=== PATIENT | female | born 1950 | race Caucasian/White ===

== ENCOUNTER 2020-11-22 09:19 | Outpatient (CLI) | payer MEDICARE, OTHER, SELFPAY ==
--- NOTE | ~2020-11-22 | MM_ITS ---
EXAMINATION: MM screening [facility] BI w michael HISTORY: Screening TECHNIQUE: Craniocaudal and mediolateral oblique 3-D tomosynthesis images were obtained and synthetic 2-D images were generated. CAD analysis was submitted and interpreted. COMPARISON: Comparison to multiple prior studies sequentially, with oldest reviewed study dated 03/03. BREAST PARENCHYMAL COMPOSITION: The breasts are heterogeneously dense, which may obscure small masses . FINDINGS: There is no evidence of suspicious mass, calcification, or architectural distortion to sugg est malignancy in either breast. There has been no suspicious interval change. IMPRESSION: 1. No mammographic evidence of malignancy. 2. Recommend routine screening mammography in one year. BI-RADS Category 1: Negative Reviewed, dictated and finalized at location A.
== END 2020-11-22 09:20 | disposition home or self-care (01) ==
LOC: ANHIMG 09:30
PROVIDERS: PCP Internal Medicine; Visit Provider Obstetrics & Gynecology
DX: Z12.31 Encounter for screening mammogram for malignant neoplasm of breast (principal)
CPT/HCPCS: 77063; 77067

== ENCOUNTER 2021-03-08 07:55 | Outpatient (RCR) | payer BC, MEDICARE, SELFPAY ==
--- NOTE | 2021-03-08 08:38 | PTOPEVAL ---
Thank you for referring Chandni Fox to [facility].? The patient is scheduled to be seen for therapy? ____x/week for ___ weeks. Please review, sign, date and return this plan of care PEMA. I agree with and certify that the following plan of care is medically necessary. Referring Physician Date Admitting Provider: Attending Provider: Marcelle Del Toro Referring Provider: PRETTY Outpatient Evaluation Start: 03/08/21 07:01 Freq: Status: Active Protocol: Document 03/08/21 07:00 [facility] (Rec: 03/08/21 08:37 [facility] [id number]) Evaluation Information Problem Diagnosis neck pain Onset 02/18/21 Additional Evaluation Detail ndi = 30% functionally declined quick dash = 40% functionally declined Subjective Information Patient reports neck and upper Query Text:As Reported By Patient/ back pain, R UE radicular Family symptoms, dizziness upon standing and bending over, ringing in L hear, and pain pain in R ear. Symptoms worsened since COVID diagnosis as dizziness increased and neck pain worsened. Takes tynenol PRN. Reports jaw pain, but no diagnosis given after seeing DDS. Seen 2 ENT's for ear and facial symptoms. Sees massage therapist weekly really helps a lot . Prior Level of Function Comments Additional Prior Level of Function wants to cross stitch without Comments pain and return to gardening without dizziness/neck pain former industrial workers for 38 years, retired 14 years ago Pain Assessment Timing of Pain Assessment Timing of Pain Assessment Assessment Pain Scale Pain Scale Used Numeric (1 - 10) Self Report Pain Assessment Right Neck Reported Pain Level 2 Lowest Pain Intensity 2 Greatest Pain Intensity 5 Pain Score Pain Score 2: Self Report Interventions Used Interventions Used By Clinicians Activity or ADL's,Education, Electrical Stimulation, Exercise,Heat Cervical and Lumbar ROM Cervical ROM Cervical Flexion (0-60) 45 Query Text:Active in Degrees Cervical Extension (0-70) 60 Query Text:Active in Degrees Cervical Lateral Flexion Right (0-50) 45 Query Text:Active in Degrees Cervic
--- NOTE | 2021-04-15 10:20 | PTOPEVAL ---
Thank you for referring Chandni Fox to [facility].? The patient is scheduled to be seen for therapy? __2__x/week for 4 visits. Please review, sign, date and return this plan of care PEMA. I agree with and certify that the following plan of care is medically necessary. Referring Physician Date Admitting Provider: Attending Provider: Marcelle Del Toro Referring Provider: *PT Outpatient Evaluation Start: 03/08/21 07:01 Freq: Status: Active Protocol: Document 04/15/21 08:45 [facility] (Rec: 04/15/21 10:17 [facility] [id number]) Therapy Assessment Status Assessment Status Assessment Status Progress Evaluation Information Problem Diagnosis neck pain Onset 02/18/21 Subjective Information Pt. reports that she felt very Query Text:As Reported By Patient/ good for 2-3 days after last Family Rx. She reports that fullness in the ears had subsided and the ringing also quit. Pt. reports symptoms returned over the weekend. She states that she notes some slight improvement with PT, but still has concern about the symptoms of fullness. Pain Assessment Timing of Pain Assessment Timing of Pain Assessment Pre-Treatment Pain Scale Pain Scale Used Numeric (1 - 10) Self Report Pain Assessment Right Neck Reported Pain Level 5 Pain Score Pain Score 5: Self Report Interventions Used Interventions Used By Clinicians Electrical Stimulation, Exercise,Heat,Manual Therapy Techniques Cervical and Lumbar ROM Cervical ROM Cervical Flexion (0-60) 55 Query Text:Active in Degrees Cervical Extension (0-70) 58 Query Text:Active in Degrees Cervical Lateral Flexion Right (0-50) 45 Query Text:Active in Degrees Cervical Lateral Flexion Left (0-50) 41 Query Text:Active in Degrees Cervical Rotation Right (0-90) 72 Query Text:Active in Degrees Cervical Rotation Left (0-90) 68 Query Text:Active in Degrees Upper Extremity Muscle Strength Testing General Upper Extremity Strength Gross Upper Extremity Strength Comments -bilateral shoulder flexion 4+ /5 -blateral shoulder ER 4+/5 -bilateral shoulder IR 5/5 -bilateral elbow flexion 4+/5 -bilateral elbow extension 4/5 General Exercise General Exercises Exercise Description -bilateral shoulder retraction Query Text:Record Sets, Reps,
== END 2021-05-07 09:42 | disposition home or self-care (01) ==
LOC: CHSPT 07:55
DX: M54.2 Cervicalgia (principal)
CPT/HCPCS: 97012; 97014; 97110; 97140; 97162; G0283

== ENCOUNTER 2022-01-07 08:52 | Outpatient (CLI) | payer MEDICARE, OTHER, SELFPAY ==
--- NOTE | ~2022-01-07 | MM_ITS ---
EXAMINATION: MM screening jamari BI w michael HISTORY: Screening mammogram TECHNIQUE: Craniocaudal and mediolateral oblique 3-D tomosynthesis images were obtained and synthetic 2-D images were generated. Bilateral rotated lateral craniocaudal views. CAD analysis was submitted and interpreted. COMPARISON: 11/22/2020, 06/22/2019, 06/18/2018 bilateral screening mammogram examinations BREAST PARENCHYMAL COMPOSITION: The breasts are heterogeneously dense, which may obscure small masses . FINDINGS: There is no evidence of suspicious mass, calcification, or architectural distortion to sugg est malignancy in either breast. There has been no suspicious interval change. IMPRESSION: 1. No mammographic evidence of malignancy. 2. Recommend routine screening mammography in one year. BI-RADS Category 1: Negative Reviewed, dictated and finalized at location A.
== END 2022-01-07 08:53 | disposition home or self-care (01) ==
PROVIDERS: Visit Provider Obstetrics & Gynecology
DX: Z12.31 Encounter for screening mammogram for malignant neoplasm of breast (principal)
CPT/HCPCS: 77063; 77067

== ENCOUNTER 2022-09-16 08:57 | Outpatient (RCR) | payer MEDICARE, OTHER, SELFPAY ==
--- NOTE | 2022-09-23 21:50 | BUPTOPEVAL1 ---
Assessment and note entered by JT File, PT Evaluation Information Assessment Status Evaluation Diagnosis cervical disc herniation, cervical spinal stenosis Onset 09/11/22 Subjective Information patient reports back in 2020 she got stuck climbing through a fence. she reports she began having pain in the R shoulder, but the ortho believes it is coming from her neck. she reports she began a new med for the pain in the R arm last week. she reports this has helped a bit. she reports she continues to have pain in the R elbow, R 1st 3 fingers, and pain up the R shoulder to the neck. she reports she also has pain in the R shoulder blade. she reports it is worse in the upper back/shoulder blade this morning. she reports last week she had pain in the base of the neck shooting up to the head with lifting the laudry basket. pain in the neck and R UE is increased with lifting. Reported Pain Level Pain Score 6,5: Self Report Assessment PT Clinical Summary mrs. wilcox presents to skilled PT services for evaluation and treatment of R cervical radiculopathy, RTC tendinopathy, and R lateral epicondylitis. she would benefit from continued skilled PT to address her objective/functional deficits and return to her prior level home and animal care activities. focus will begin with the cervical spine as this appears to be the most eggregious issue at hand. Plan of Care Interventions Electrical Stimulation,Hot Pack/Cold Pack,Manual Therapy,Mechanical Traction,Neuro Re-education, Patient/Caregiver Educati,Therapeutic Activities, Therapeutic Exercise PT Services Indicated Yes Treatment Frequency and 3x weekly for 12 visits Duration These treatments will address the objective and functional deficits as defined above. The patient will be advanced safely and appropriately in order for the patient to progress towards his/her prior level of function. Additional exercises will be introduced and as well as a comprehensive home exercise program upon discharge, if needed, ?to ensure carryover of functional gains achieved in the clinic. This treatment plan has been reviewed and agreement upon by the patient.
--- NOTE | 2022-10-09 10:09 | PTOPPROG ---
Assessment and note entered by JT File, PT Evaluation Information Assessment Status Progress Diagnosis cervical disc herniation, cervical spinal stenosis Onset 09/11/22 Subjective Information patient reports her pain in the neck and R shoulder blade are much decreased today. she reports she has been feeling good the past few visits with less pain and improved rom and reaching with the arms. Assessment PT Clinical Summary mrs. wilcox presents to skilled PT services for her 10th skilled PT. as of this date, her pain is decreased, her cervical rom is improved, and her functional IR reach with the R UE is improved. she is progressing towards goals, but has only met her goal for HEP performance thus far. she would do well to continue skilled PT to continue to work on pain reduction, rom, strength, and progression towards all goals. Plan of Care Interventions Electrical Stimulation,Hot Pack/Cold Pack,Manual Therapy,Mechanical Traction,Neuro Re-education, Patient/Caregiver Educati,Therapeutic Activities, Therapeutic Exercise PT Services Indicated Yes Treatment Frequency and continue skilled PT 2x weekly for 2 more visits Duration These treatments will address the objective and functional deficits as defined above. The patient will be advanced safely and appropriately in order for the patient to progress towards his/her prior level of function. Additional exercises will be introduced and as well as a comprehensive home exercise program upon discharge, if needed, ?to ensure carryover of functional gains achieved in the clinic. This treatment plan has been reviewed and agreement upon by the patient.
--- NOTE | 2022-10-22 21:45 | BUPTOPEVAL1 ---
Assessment and note entered by JT File, PT Evaluation Information Assessment Status Discharge Diagnosis cervical disc herniation, cervical spinal stenosis Onset 09/11/22 Subjective Information patient reports she was in the ER last night with severe pain in the neck, R shoulder, and R UE. she reports she is a bit better today, but last night her pain was a 10/10. she reports she was given meds and and evaluated via CT, but ultimately sent home with medications and instructions to follow up with her MD. in addition to her pain, patient continues to report facial nerve symptoms on the R side only stemming from her ear out to her eye/ cheek. Assessment PT Clinical Summary mrs. wilcox presents to skilled PT 1 day s/p ER admission for several flare up of shoulder, arm, neck, and scapular pain. for the past few visits leading up to this ER visit she was beginning to progress with therapy noting less pain and increased tolerated for exercises/activities. however, due to this new flare up of pain and lack of achievement of goals set forth in skilled PT, patient has been advised to DC therapy at this time and follow up with MD/schedule consultation with a cervical spine doctor. she has met only goals for HEP performance. Plan of Care Interventions Electrical Stimulation,Hot Pack/Cold Pack,Manual Therapy,Mechanical Traction,Neuro Re-education, Patient/Caregiver Educati,Therapeutic Activities, Therapeutic Exercise PT Services Indicated Yes Treatment Frequency and DC to HEP and follow up with MD/consultation with Duration cervical research support specialist. These treatments will address the objective and functional deficits as defined above. The patient will be advanced safely and appropriately in order for the patient to progress towards his/her prior level of function. Additional exercises will be introduced and as well as a comprehensive home exercise program upon discharge, if needed, ?to ensure carryover of functional gains achieved in the clinic. This treatment plan has been reviewed and agreement upon by the patient.
== END 2022-10-17 09:58 | disposition home or self-care (01) ==
LOC: CHSPT 08:57
PROVIDERS: Visit Provider Physician Assistant
DX: M50.20 Other cervical disc displacement, unspecified cervical region (principal); M48.02 Spinal stenosis, cervical region
CPT/HCPCS: 97014; 97110; 97140; 97161; G0283

== ENCOUNTER 2022-12-18 10:00 | Outpatient (CLI) | payer MEDICARE, SELFPAY ==
--- NOTE | 2022-12-18 11:00 | NEURO_ITS ---
Impression: Patient reports a history of right arm pain. # Mild, right Carpal Tunnel Syndrome. # Normal needle/EMG exam. # Clinical correlation recommended. Nerve Conduction Studies Anti Sensory Summary Table Stim Site NR Peak (ms) P-T Amp (?V) Site1 Site2 Delta-P (ms) Dist (cm) Larry (m/s) Right Median Anti Sensory (2-3nd Digit) Wrist 3.8 28.6 Wrist 2-3nd Digit 3.8 14.0 37 Wrist 4.1 29.2 Wrist 2-3nd Digit 3.8 14.0 37 Right Radial Anti Sensory (Base 1st Digit) Wrist 2.5 25.3 Wrist Base 1st Digit 2.5 0.0 Right Ulnar Anti Sensory (5th Digit) Wrist 3.3 26.9 Wrist 5th Digit 3.3 14.0 42 Motor Summary Table Stim Site NR Onset (ms) O-P Amp (mV) Site1 Site2 Delta-0 (ms) Dist (cm) Larry (m/s) Right Median Motor (Abd Poll Brev) Wrist 3.5 6.7 Elbow Wrist 4.4 25.0 57 Elbow 7.9 3.4 Right Ulnar Motor (Abd Dig Minimi) Wrist 3.2 6.3 A Elbow Wrist 5.0 27.0 54 A Elbow 8.2 5.1 B Elbow Wrist 3.8 19.0 50 B Elbow 7.0 5.2 F Wave Studies NR F-Lat (ms) L-R F-Lat (ms) Right Median (Mrkrs) (Abd Poll Brev) 28.53 Right Ulnar (Mrkrs) (Abd Dig Min) 29.01 EMG Side Muscle Nerve Root Ins Act Fibs Amp Dur Recrt Comment Right 1stDorInt Ulnar C8-T1 Nml Nml Nml Nml Nml Right Ext Indicis Radial (Post Int) C7-8 Nml Nml Nml Nml Nml Right Ext Digitorum Radial (Post Int) C7-8 Nml Nml Nml Nml Nml Right BrachioRad Radial C5-6 Nml Nml Nml Nml Nml Right PronatorTeres Median C6-7 Nml Nml Nml Nml Nml Right Abd Poll Brev Median C8-T1 Nml Nml Nml Nml Nml MTDD
== END 2022-12-18 10:01 | disposition home or self-care (01) ==
LOC: ANHNEURO 10:01
PROVIDERS: PCP Physician Assistant; Visit Provider Nurse Practitioner Adult Health
DX: G56.01 Carpal tunnel syndrome, right upper limb (principal)
CPT/HCPCS: 95886; 95909

== ENCOUNTER 2023-03-13 09:50 | Outpatient (CLI) | payer MEDICARE, SELFPAY ==
--- NOTE | ~2023-03-13 | MM_ITS ---
EXAMINATION: MM screening [facility] BI w michael HISTORY: Screening mammogram TECHNIQUE: Craniocaudal and mediolateral oblique 3-D tomosynthesis images were obtained and synthetic 2-D images were generated. CAD analysis was submitted and interpreted. COMPARISON: 01/07/2022, 11/22/2020, 06/22/2019 BREAST PARENCHYMAL COMPOSITION: The breasts are heterogeneously dense, which may obscure small masses . FINDINGS: No suspicious mass, calcification, or architectural distortion are identified in either balwinder ast to suggest malignancy. There has been no suspicious interval change. IMPRESSION: 1. No mammographic evidence of malignancy. 2. Recommend routine screening mammography in one year. BI-RADS Category 1: Negative Reviewed, dictated and finalized at location A.
== END 2023-03-13 09:51 | disposition home or self-care (01) ==
LOC: ANHIMG 09:57
PROVIDERS: PCP Physician Assistant; Visit Provider Obstetrics & Gynecology
DX: Z12.31 Encounter for screening mammogram for malignant neoplasm of breast (principal)
CPT/HCPCS: 77063; 77067

== ENCOUNTER 2024-05-26 09:42 | Outpatient (CLI) | payer MEDICARE, SELFPAY ==
--- NOTE | ~2024-05-26 | MM_ITS ---
EXAMINATION: MM screening [facility] BI w michael HISTORY: Screening mammogram TECHNIQUE: Craniocaudal and mediolateral oblique 3-D tomosynthesis images were obtained and synthetic 2-D images were generated. CAD analysis was submitted and interpreted. COMPARISON: 03/13/2023, 01/07/2022, 11/22/2020, 06/22/2019 BREAST PARENCHYMAL COMPOSITION:Dense: The breasts are heterogeneously dense, which may obscure small masses. FINDINGS: No suspicious mass, calcification, or architectural distortion are identified in either balwinder ast to suggest malignancy. There has been no suspicious interval change. IMPRESSION: No mammographic evidence of malignancy. Recommend routine screening mammography in one year. BI-RADS Category 1: Negative Reviewed, dictated and finalized at location .
== END 2024-05-26 09:43 | disposition home or self-care (01) ==
LOC: ANHIMG 09:43
PROVIDERS: PCP Physician Assistant; Visit Provider Obstetrics & Gynecology
DX: Z12.31 Encounter for screening mammogram for malignant neoplasm of breast (principal)
CPT/HCPCS: 77063; 77067

== ENCOUNTER 2025-08-25 15:02 | Outpatient (CLI) | payer MEDICARE, SELFPAY ==
--- NOTE | ~2025-08-25 | MM_ITS ---
EXAMINATION: MM screening jamari BI w michael HISTORY: Screening TECHNIQUE: Craniocaudal and mediolateral oblique 3-D tomosynthesis images were obtained and synthetic 2-D images were generated. CAD analysis was submitted and interpreted. COMPARISON: Comparison to multiple prior studies sequentially, with oldest reviewed study dated , 06/18/2018 BREAST PARENCHYMAL COMPOSITION: Dense: The breasts are heterogeneously dense, which may obscure small masses. FINDINGS: There is no evidence of suspicious mass, calcification, or architectural distortion to suggest malignancy in either breast. IMPRESSION: 1. No mammographic evidence of malignancy. 2. Recommend routine screening mammography in one year. BI-RADS Category 1: Negative Reviewed, dictated and finalized at location A. IGN EXCHANGE CLERK
--- OUTSIDE RECORDS SUMMARY | 2025-08-25 15:07 | XMS_ITS | Clinical Summary ---
Author Organization [facility] Address [address] [place] [address] Care Team Providers Care Firer Automatic Stoker Name Role Phone Tony Stark MD, Tee Salazar Primary Care Provi precious Unavailable Source Comments [facility],non-owned Affiliates and Associated Physician Practices is amultiple site organization consisting of ambulatory clinics and hospital sitesin [place], [place], [place] and [place]. This disclosure is being madepursuant to the Care Everywhere program and may not contain all information available regarding this patient. Last updated 18.[facility] Allergies No known active allergies Medications * Be aware that medications may not be up to date on this document. Alwaysverify current medications with the patient. ascorbic acid (VITAMIN C) 500 MG tablet Take 1 tablet by mouth once daily Active cyanocobalamin (VITAMIN B-12) 100 MCG tablet Activ e Probiotic Product (PROBIOTIC-10 PO) Active cholecalciferol (D--RIKKI) 10 MCG (400 UNITS)/ML solution Take 1 tablet by mouth once daily Active HYDROcodone-dimitri taminophen (NORCO) 5-325 MG tablet Take 1 tablet by mouth 07/03/2021 Active ondansetron, disintegrating, (ZOFRAN ODT) 4 MG tablet Take 4 mg by mouth 07/03/2021 Active Chlorpheniramin e-Phenylephrine 4-10 MG 04/29/2021 Active nitrofurantoin monohyd macro crystals (MACROBID) 100 MG capsule TAKE ONE CAPSULE BY MOUTH TWICE DAILY FOR 5 DAYS 02/06/2021 Active cyclobenzaprine (FLEXERIL) 5 MG tablet TAKE 1 TABLET BY MOUTH THREE TIMES DAILY FOR 5 DAYS 04/28/2021 Active meloxicam (Mobic) 15 MG tablet Take 1 (one) tablet by mouth once daily 30 tablet 5 11/08/2024 Active Hospital, Clinic, or Other Facility Administered Medication Ordered Dose Route Frequency Start Date End Date Status triamcinolone acetonide (Kenalog-40) injection 20 mgIndications:Arthritis of carpometacarpal (CMC) joint of right thumb 20 mg IX ONCE 08/23/2025 08/24/2025 Ended lidocaine PF (Xylocaine MPF) 1 % injection 0.5 mLIndications:Arthritis of carpometacarpal (CMC) joint of right thumb 0.5 mL IX ONCE 08/23/2025 08/24/2025 Ended triamcinolone acetonide (Kenalog-40) injection 40 mgIndications:Carpal tunnel syndrome of right wrist 40 mg IX ONCE 08/23/2025 08/24/2025 E nded lidocaine PF (Xylocaine MPF) 1 % injection 1 mLIndications:Carpal tunnel syndrome of right wrist 1 mL IX ONCE 08/23/2025 08/24/2025 E nded Active Problems Problem Noted Date Diagnosed Date Scapulothoracic bursitis of right shoulder 02/13 Cervical radiculopathy 07/04/2021 Traumatic incomplete tear of right rotator cuff 07/04/2021 Encounters Date Type Department Care Team Description 08/23/2025 9:30 AM TRANSFER TABLE OPERATOR Office Visit [facility] [address] [place] [address], [address] [address] Evan Joseph MD Carpal tunnel syndrome of right wrist (Primary Dx); Arthritis of carpometacarpal (CMC) joint of right thumb; Lateral epicondylitis of right elbow from Last 3 Months Social History Tobacco Use Types Packs/Day Years Used Date Smoking Tobacco: Never Smokeless Tobacco: Never Tobacco Cessation:Counseling Given: Not Answered Alcohol Use Standard Drinks/Week Comments Yes 0 (1 standard drink = 0.6 oz pur e alcohol) PHQ-2 Answer Date Recorded Patient Health Questionnaire-2 Score 0 08/16/2025 Comments Unknown Sex and Gender Information Value Date Recorded Sex Assigned at Not on file Legal Sex Female 4:10 PM CDT Gender Identity Not on file Sexual Orientation Not on file Plan of Treatment Upcoming Encounters Date Type Department Care Team (Late st Contact Info) Description 09/21/2025 11:40 AM TRANSFER TABLE OPERATOR Office Visit [facility] [address] [facility], [address] [address] Flaco Rodrigues PA-C [id number] [address] Health Maintenance Due Date Last Done Comments BONE DENSITY TESTING 1950 COLOGUARD (AGES 45-75) - COL ON CA SCREENING 1950 COLON MONITORING 1950 COLONOSCOPY - COLON CA SCREENING 1950 CT COLONOGRAPHY - COLON CA SCREENING 1950 Colorectal Cancer Screening 1950 FIT - COLON CA SCREENING 1950 FLEX SIG - COLON CA SCREENING 1950 MAMMOGRAM 1950 MEDICARE AWV 12 MONTHS 1950 HEPATITIS C SCREENING 11/04/1968 DTAP/TDAP/TD VACCINES (1 - Tdap) 1969 PNEUMOCOCCAL VACCINE 50+ (1 of 1 - PCV) 2000 ZOSTER VACCINE (1 of 2) 2000 COVID-19 VACCINE (1 - 2024-2 6 season) 2025 INFLUENZA VACCINE (#1) 2025 0, 06/27/2018, 06/25/2016 Respiratory Syncytial Virus (RSV) Vaccine Pt: or over 60 yrs (1 - 1-dose 75+ series) 2025 LIPID TESTING 05/05/2030 05/05/2025 DEPRESSION SCREENING Completed 09/22/2024, 08/11/2024 HEPATITIS B VACCINE Aged Out No longe r eligible based on patient's age to complete this topic HIB VACCINE Aged Out No longer eligi ble based on patient's age to complete this topic HPV VACCINE Aged Out No longer eligi ble based on patient's age to complete this topic MENINGOCOCCAL (Group B) VACCINE SHARED DECISION-MAKING Aged Out No longer eligible based on patient's age to complete this topic MENINGOCOCCAL GROUPS A/C/Y/W VACCINE Aged Out No longer eligible b ased on patient's age to complete this topic Insurance [facility] Address: [address] [place] [address] [employer] [facility] MEDICARE [facility] [place] [id number] Care Teams Firer Automatic Stoker Relationship Specialty Start Date End Date Tee Jimenez Jr., MD PCP - General 03/09/18
--- OUTSIDE RECORDS SUMMARY | 2025-08-25 15:07 | XMS_ITS | Clinical Summary ---
Author Organization [facility] Care Team Providers Care Ecotherapist Name Role Phone Channing Evans MD Unavailable [phone] Sudhakar Piña MD Unavailable [phone] Marcelle Del Toro PAC Primary Care Pro vider Edilberto Kaplan MD Unavailable [phone] Allergies No known active allergies Medications Cholecalciferol (VITAMIN D-3 PO) Take 1 Tab by mouth daily. Active Ascorbic Acid (VITAMIN C PO) Take 1 Tab by mouth daily. Active Cyanocobalamin (Vitamin B12) 1000 MCG Tablet Controlled Release 10/29/2022 Active diphenhydrAMINE (Benadryl Allergy) 25 MG CapsuleIndicatio ns:Irritant contact dermatitis, unspecified trigger Take 1 Capsule by mouth every 6 hours as needed for Itching. 100 Capsule 01/18/2024 Active Acetaminophen (TYLENOL ARTHRITIS PAIN PO) Take 1 Tablet by mouth daily as needed. Active Fiber, Kiel Dextrin, Powder Take by mouth daily. Active cetirizine (ZyrTEC) 5 MG Tablet Take 5 mg by mouth daily. 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 11/12/2016 Overview (11/05/2016): November 2016 Immunizations Immunization Administration Dates Next Due Influenza Vaccine greater than 3 yrs 11/11/2019, 06/27/2018,06/25/2016 PUR PCV-13 10/29/2016 Pneumococcal Vaccine Adult - 23 Valent 9 Family History Medical History Relation Name Comments Diabetes Brother Diabetes Father type 2 Dementia Mother Hypertension Mother Uterine Cancer Sister Relation Name Status Comments Brother Alive Father Mother Sister Social History Tobacco Use Types Packs/Day Years Used Date Smoking Tobacco: Never Smokeless Tobacco: Never Tobacco Cessation:Counseling Given: Not Answered Alcohol Use Standard Drinks/Week Comments Yes 1 (1 standard drink = 0.6 oz pur e alcohol) SOCIALLY [employer] [employer] Answer Date Recorded In the past 12 months has [employer] electric, gas, oil, or water [employer] threatened to shut off services in your home? No 11/02/2024 Social Connection and Isolation Panel Answer Date Recorded In a typical week, how many times do you talk on the phone with family, friends, or neighbors? More than three times a week 11/02/2024 How often do you get togethe r with friends or relatives? Once a week 11/02/2024 How often do you attend chur or sikhism services? 1 to 4 times per year 11/02/2024 Do you belong to any clubs o r organizations such as jehovah's witness groups, unions, fraternal or athletic groups, or school groups? No 11/02/2024 How often do you attend meet ings of the clubs or organizations you belong to? Never 11/02/2024 Are you , , di vorced, , never , or living with a partner? 11/02/2024 AUDIT-C Answer Date Recorded Q1: How often do you have a drink containing alc ohol? 2-4 times a month 11/02/2024 Q2: How many drinks containi ng alcohol do you have on a typical day when you are drinking? 1 or 2 11/02/2024 Q3: How often do you have si x or more drinks on one occasion? Never 11/02/2024 Overall Financial Resource Strain (CARDIA) Answe r Date Recorded How hard is it for you to pa y for the very basics like food, housing, medical care, and heating? Not hard at all 11/02/2024 PHQ-2 Answer Date Recorded Total Score - Questions 1-9 0 10/09 [facility] [place] of Occupat ional Health - Occupational Stress Questionnaire Answer Date Recorded Do you feel stress - tense, restless, nervous, or anxious, or unable to sleep at night because your mind is troubled all the time - these days? Not at all 11/02/2024 Exercise Vital Sign Answer Date Recorde d On average, how many days pe r week do you engage in moderate to strenuous exercise (like a brisk walk)? 7 days 11/02/2024 On average, how many minutes do you engage in exercise at this level? 40 min 11/02/2024 Hunger Vital Sign Answer Date Recorded Within the past 12 months, y ou worried that your food would run out before you got the money to buy more. Never true 11/02/19 25 Within the past 12 months, t he food you bought just didn't last and you didn't have money to get more. Never true 11/02/2024 PRAPARE - Transportation Answer Date Re corded In the past 12 months, has l ack of transportation kept you from medical appointments or from getting medications? No 10/09 In the past 12 months, has l ack of transportation kept you from meetings, work, or from getting things needed for daily living? No 11/02/2024 Housing Stability Vital Sign Answer Heath e Recorded In the last 12 months, was t here a time when you were not able to pay the mortgage or rent on time? No 01/06/2024 Number of Places Lived in the Last Year Not on f ile 01/06/2024 In the last 12 months, was t here a time when you did not have a steady place to sleep or slept in a mcfp (including now)? No 01/06/2024 Housing Stability Vital Sign Answer Heath e Recorded In the last 12 months, was t here a time when you were not able to pay the mortgage or rent on time? No 11/02/2024 In the past 12 months, how m any times have you moved where you were living? 0 11/02/2024 At any time in the past 12 m [facility], were you homeless or living in a mcfp (including now)? No 11/02/2024 Education Answer Date Recorded What is the highest level of school you have completed or the highest degree you have received? 12th grade 10/29/2020 Sexually Active Control Partners Comments Yes Male Comments No Sex and Gender Information Value Date Recorded Sex Assigned at Not on file Legal Sex Female 10:58 PM CDT Gender Identity Not on file Sexual Orientation Not on file Last Filed Vital Signs Vital Sign Reading Time Taken Comments Blood Pressure 128/68 05/05/2025 8:09 AM CDT Pulse 65 05/05/2025 8:09 AM CDT Temperature 36.5 C (97.7 F) 05/05/2025 8:09 AM CDT Respiratory Rate 12 05/05/2025 8:09 AM CDT Oxygen Saturation 94% 05/05/2025 8:09 AM CDT Inhaled Oxygen Concentration - - Weight 55.3 kg (122 lb) 05/05/2025 8:09 AM CDT Height 167.6 cm (5' 6) 07/05/2024 3:00 PM CDT Body Mass Index 19.69 07/05/2024 3:00 PM CDT Plan of Treatment Upcoming Encounters Date Type Department Care Team (Late st Contact Info) Description 11/06/2025 8:30 AM GUIDE DOMESTIC TOUR Office Visit [facility] [place] [address] [place] [phone] Marcelle Del Toro PAC [address] [place] [address] Health Maintenance Due Date Last Done Comments Cologuard 11/10/1995 Immunochemical Fecal Occult Blood 11/10/1995 Medicare Initial AWV [id number] 11/05/2016 Influenza Immunization (#1) 2025 03/0 02/2020, 06/27/2018, 06/25/2016 Mammogram 05/26/2025 05/26/2024, 07/0 03/2023, 11/22/2020, Additional history exists Discussion re Stopping Mammograms 2025 Respiratory Syncytial Virus (RSV) Immunization (Adult) (1 - 1-dose 75+ series) 2025 Colonoscopy 07/19/2029 07/19/2024, 07/08, 12/07/2018, Additional history exists Colorectal Cancer Screening 07/19/2029 DEXA Bone Density Discontinued 10/12/2015, 10/12/2015 Pneumococcal Immunization (50+ years) Completed 10/29/2018, 10/29/2016 Pneumococcal Immunization Combined Discontinued 10/29/2018, 10/29/2016 Hepatitis C Virus (HCV) Screening Completed 05/05/2025 Hepatitis B Immunization Aged Out No longer eligible based on patient's age to complete this topic Human Papillomavirus (HPV) Immunization (No Doses Required) Completed Meningococcal Immunization (ACWY) Aged Out No longer eligible based on patient's age to complete this topic Rotavirus Immunization Aged Out No lo nger eligible based on patient's age to complete this topic SARS-COV-2 Immunization Discontinued TdaP Immunization Discontinued Zoster Immunization Discontinued Procedures Procedure Name Priority Date/Time Associated Diagnosis Comments HEPATITIS C ANTIBODY Routine 05/05/2025 8:49 AM CDT Need for hepatitis C screening test GI IMAGING - COLONOSCOPY Routine 07/19/2024 8:27 AM GUIDE DOMESTIC TOUR MAMMOGRAM BILATERAL GENERIC 05/26/2024 12:00 AM CDT [facility] BONE DENSITOMETRY AXIAL SKELETON Routine 10/12/2015 from Last 3 Months or Most Recently Relevant to Health Maintenance Results * HEPATITIS C ANTIBODY (05/05/2025 8:49 AM CDT) hepatitis C antibody 0.06 <1 S/CO 05/05/2025 10:17 PM CDT [facility] Comment: Signal/Cutoff ratio < 0.79 is Nondetected Signal/Cutoff ratio 0.80-0.99 is Grayzone Signal/Cutoff ratio > 0.99 is Detected Supplemental assays are recommended if signal/cutoff ratio is >/=1.00. Signal/cutoff ratio result >/= 5.00 is 97% predictive of positivity for recombinant immunoblot assay (RIBA) and will be reported to the [place] Department of Public [facility] as required. Blood Venipuncture / Unknown 05/05/2025 8:49 AM CDT 05/05/2025 8:49 AM CDT Marcelle Del Toro PAC CHEMISTRY ORDERAB LES Final Result [facility] [address] [place] [address], [place] * GI IMAGING - COLONOSCOPY (07/19/2024 8:27 AM GUIDE DOMESTIC TOUR) Alejandro Caro MD IMG DIAGNOSTIC ORDERABLES Final Result * MAMMOGRAM BILATERAL MISCELLANEOUS (05/26/2024 12:00 AM CDT) 05/26/2024 Provider Scan IMG MAMMO ORDERABLES Final Resul t Performing Organization Address City/[facility]/ZIP Co de Phone Number SCAN * FAYE BONE DENSITOMETRY AXIAL SKELETON (10/12/2015) Anatomical Region Laterality Modality BODY N/A Other Tee Jimenez Jr., MD IMG DEXA ORDERABLES Final Result from Last 3 Months or Most Recently Relevant to Health Maintenance Insurance MEDICARE [facility] [place] [id number] Advance Directives Documents on File Type Date Recorded Patient Lean Manager Expl anation Power of Evs Tech for Health Care 12/07/2018 12:20 PM POA-HC Care Teams Ecotherapist Relationship Specialty Start Date End Date Marcelle Del Toro PAC [address] [place] [address] PCP - General Physician Embroidery Finisher 02/27/21 Channing Evans MD [address] [facility] [address] [place] [address] Consulting Physician Obstetrics & Gynecology 10/29/16 Sudhakar Piña MD [address] [place] [address] Consulting Physician Otolaryngology 02/11/21 Edilberto Kaplan MD [address] [facility] [address] [place] [phone] Consulting Physician General Surgery 11/17/23
--- OUTSIDE RECORDS SUMMARY | 2025-08-25 15:07 | XMS_ITS | Clinical Summary ---
Author Organization [facility] Address [address] [place] [address] Care Team Providers Care Data Analyst Report Writer Name Role Phone Marcelle Del Toro Primary Care Prov ider Allergies No known active allergies Medications ascorbic acid (vitamin C) 1,000 mg tablet 1,000 mg. 0 0 7 Active estrogens, conjugated,-medr oxyPROGESTERone (PREMPRO) 0.625-5 mg per tablet take 1 tablet by oral route every day 0 0 7 Active Additional Information Patient not taking.Reported on 07/24/2022 Lactobacillus acidophilus (PROBIOTIC) 10 billion cell capsule 0 0 7 Active Additional Information Patient not taking.Reported on 09/17/2022 vitamin B complex capsule Take 1 capsule by mouth daily Active cholecalciferol (VITAMIN D-3) 2000 unit tablet Act oscar celecoxib (CeleBREX) 200 mg capsule Take 1 capsule (200 mg total) by mouth daily for 14 days 14 capsule 3 Active mg-cwc-fntbi acid-lutein (Centrum Silver) 400-250 mcg tablet,chewable Acti ve Active Problems Problem Noted Date Diagnosed Date Sensorineural hearing loss (SNHL) of both ears 0 09/17/2022 Assessment & Plan (09/17/2022 11:07 AM DIP FILLER): Continue to work with Physical therapy Suspect muscle spasms contributing to neck and ear pain Continue Cetirizine 10 mg daily Hearing test [facility] Tinnitus of both ears 09/17/2022 Assessment & Plan (09/17/2022 11:10 AM DIP FILLER): Continue to work with Physical therapy Suspect muscle spasms contributing to neck and ear pain Continue Cetirizine 10 mg daily Hearing test [facility] Check blood pressure when ears ringing Referred otalgia of right ear 09/17/2022 Assessment & Plan (09/17/2022 11:09 AM DIP FILLER): Continue to work with Physical therapy Suspect muscle spasms contributing to neck and ear pain Continue Cetirizine 10 mg daily Hearing test [facility] [phone] [address] [place] [address] Agree with MRI scan by Othropedic office Arthritis 07/24/2022 Chronic rhinitis 07/24/2022 IBS (irritable bowel syndrome) 07/24/2022 Scapulothoracic bursitis of right shoulder 02/13 Right ear pain 08/19/2021 Cervical radiculopathy 07/04/2021 Traumatic incomplete tear of right rotator cuff 07/04/2021 GERD (gastroesophageal reflux disease) 7 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 Overview (01/30/2017): Chew's palsy Surgical History Surgery Date Site/Laterality Comments [place] APPENDECTOMY Appendectomy - (Added by TW Conv) [place] UNLISTED PROCEDURE BREAST Breast Surgery - (Added by TW Conv) Medical History Medical History Date Comments History of appendectomy History of appendectomy Hx Other Medical Lumpectomy, rig ht breast Personal history of other di seases of the nervous system and sense organs History of catarac t - (Added by TW Conv) Allergy status to unspecifie d drugs, medicaments and biological substances status History of seasonal allergie s - (Added by TW Conv) Personal history of malignan t neoplasm of breast History of malignant neoplas m of breast - (Added by TW Conv) Family History Medical History Relation Name Comments Diabetes Father Diabetes mellit us; Hypertension Mother Hypertension; Diabetes Sister 1 Diabetes mellit us; Uterine cancer Sister 2 Cancer, uteri ne; Relation Name Status Comments Father Mother Sister 1 Sister 2 Social History Tobacco Use Types Packs/Day Years Used Date Smoking Tobacco: Former Smokeless Tobacco: Never Tobacco Cessation:Counseling Given: Not Answered Alcohol Use Standard Drinks/Week Comments Yes 0 (1 standard drink = 0.6 oz pur e alcohol) AUDIT-C Answer Date Recorded Q1: How often do you have a drink containing alcohol? 4 or more times a week 08/19/2021 Average Number of Drinks Not on file 021 Frequency of Binge Drinking Not on file 08/07 Personal Safety Answer Date Recorded Getting School Help Needed Not on file 08/22 Comments Unknown Sex and Gender Information Value Date Recorded Sex Assigned at Not on file Legal Sex Female 5:05 PM CDT Gender Identity Not on file Sexual Orientation Not on file Last Filed Vital Signs Vital Sign Reading Time Taken Comments Blood Pressure 138/81 09/17/2022 10:23 AM DIP FILLER Pulse 74 09/17/2022 10:23 AM DIP FILLER Temperature 36.6 C (97.8 F) 09/17/2022 10:23 AM DIP FILLER Respiratory Rate 16 09/17/2022 10:23 AM DIP FILLER Oxygen Saturation 99% 09/17/2022 10:23 AM DIP FILLER Inhaled Oxygen Concentration - - Weight 59.6 kg (131 lb 4.8 oz) 09/17/2022 10:23 AM DIP FILLER Height 167.6 cm (5' 6) 09/17/2022 10:23 AM DIP FILLER Body Mass Index 21.19 09/17/2022 10:23 AM DIP FILLER Plan of Treatment Health Maintenance Due Date Last Done Comments Breast Cancer Screening-Mammogram 1950 Colon Cancer Screening-Colonoscopy 1950 Depression Screening 1950 Fall Risk Assessment 1950 Hepatitis C Screening 1950 Osteoporosis Screening-Bone Density Scan 1950 DTaP/Tdap/Td Vaccine (1 - Tdap) 1961 Hepatitis B Screening 1968 Zoster Vaccine (1 of 2) 2000 Well Visit 65+ 11/10/2015 Influenza Vaccine (#1) 2025 0, 06/27/2018, 06/26/2018, Additional history exists Pneumococcal vaccine 65+ Completed 10/29/2018, 10/09 Insurance MEDICARE [facility] SUPPLEMENT MEDICARE [facility] SUPPLEMENT [place] [id number] MEDICARE [facility] SUPPLEMENT [place] [employer] [id number] Care Teams Data Analyst Report Writer Relationship Specialty Start Date End Date Marcelle Del Toro PA PCP - General Neurosurgery 09/11/22
== END 2025-08-25 15:03 | disposition home or self-care (01) ==
LOC: ANHFOHIMG 15:05
PROVIDERS: PCP Physician Assistant; Visit Provider Physician Assistant
DX: Z12.31 Encounter for screening mammogram for malignant neoplasm of breast (principal)
CPT/HCPCS: 77063; 77067